=== PATIENT | female | born 1990 | race Asian ===

== ENCOUNTER 2023-09-14 23:38 | Emergency (ER) | payer OTHER, SELFPAY ==
[2023-09-14 23:43] VITALS: BP 180/89; PULSE 95; RESP 16; TEMP 36.8; O2SAT 97; BMI 30.1
--- NOTE | 2023-09-14 23:51 | ED_ITS ---
HPI - Back Pain/Injury General Chief Complaint: Back Pain/Injury Stated Complaint: did something to lower back Time Seen by Provider: 09/14/23 23:45 History of Present Illness HPI Narrative: Patient is a 33-year-old female with history of hypertension and kidney disease, presents today with back pain. She reports that [place] from the airport she lifted a heavy suitcase over a dog gate felt some popping in her low back. She did not fall. Sitting too long she would some tingling down both legs. He has no changes in bowel or bladder habits. It takes her a very long time to get up from a sitting position. She can not find a comfortable position. She has not taken anything at home for pain not sure what she can. She said she was supposed to get a renal ultrasound for her kidney disease but she never did. We have no records of her here or previous blood work. She reports that previously she had a bulging disc diagnosed by MRI in the [place]. Related Data Home Medications Medication Instructions Recorded Confirmed nifedipine 30 mg tablet,extended 30 mg PO DAILY 09/15/23 09/15/23 release Previous Rx's Medication Instructions Recorded cyclobenzaprine 5 mg tablet 5 mg PO TID PRN muscle spasm #10 09/15/23 tabs hydrocodone 5 mg-acetaminophen 325 1 tab PO Q6H PRN pain #10 tabs 09/15/23 mg tablet Allergies Allergy/AdvReac Type Severity Reaction Status Date / Time No Known Drug Allergies Allergy Verified 09/15/23 00:09 Exam Initial Vital Signs Initial Vital Signs: Vital Signs Temperature 98.3 F 09/14/23 23:43 Pulse Rate 95 H 09/14/23 23:43 Respiratory Rate 16 09/14/23 23:43 Blood Pressure 180/89 H 09/14/23 23:43 Pulse Oximetry 97 09/14/23 23:43 Oxygen Delivery Method Room Air 09/14/23 23:43 GENERAL: Well-appearing, well-nourished and in no acute distress. CARDIOVASCULAR: peripheral pulses in tact, cap refill <2 sec RESPIRATORY: No respiratory distress, speaks in full sentences without difficulty EXTREMITIES: Normal range of motion, no clubbing or edema. Neurovascularly intact BACK: Minimal midline tenderness at the lumbosacral junction no step-offs no lower lumbar pain mild paraspinal tenderness NEUROLOGICAL: Cranial nerves II through XII grossly intact. Normal gait and speech. Sensation in lower extremities intact no saddle anesthesia SKIN: Warm, dry, no petechiae, no rashes or lesions. Course Orders Ordered: Discontinued Medications Hydrocodone Bitart/Acetaminophen (Hydrocodone/Acet 5/325 Prepack) 1 bottle MISC DIRECTED ONE Stop: 09/15/23 00:03 Last Admin: 09/15/23 00:20 Dose: 1 bottle Ketorolac Tromethamine (Ketorolac 30 Mg/Ml Vial) 30 mg IM NOW ONE Stop: 09/15/23 00:03 Last Admin: 09/15/23 00:10 Dose: 30 mg Ondansetron HCl (Ondansetron 4 Mg Odt Prepack) 1 bottle MISC DIRECTED ONE Stop: 09/15/23 00:04 Last Admin: 09/15/23 00:11 Dose: 1 bottle Vital Signs Vital signs: Vital Signs - 8 hr 09/14/23 23:43 09/15/23 00:25 Temperature 98.3 F 97.6 F Pulse Rate 95 H 74 Respiratory Rate 16 18 Blood Pressure 180/89 H 154/78 H Pulse Oximetry 97 98 Oxygen Delivery Method Room Air Room Air MDM - Back Pain/Injury MDM Narrative Medical decision making narrative: Patient 33-year-old female with history of hypertension presents today with a m echanical back pain and spasm. She did not fall. No signs of cauda equina. She has not taken anything at home. She is given 1 dose of Toradol in the ED but long discussion do not recommend continuing to take ibuprofen or NSAIDs. He has given a prepack of Terlton and Zofran. Discussed light activity may require outpatient MRI and physical therapy Discharge Plan Departure Patient Disposition: Home Clinical Impression: Strain of lumbar region Instructions: DI for Back Strain or Sprain Activity Restrictions/Additional Instructions: *You have been diagnosed with back pain *What to do: At this time light activity is encouraged no strenuous activity or heavy lifting more than 10 pounds. May require outpatient MRI and or physical therapy *Continue to take medications as directed Do not take NSAIDs such as Motrin, naproxen, Aleve, ibuprofen, Advil etc Terlton 1 tablet every 6 hours if needed for severe pain (this has Tylenol in it, do not combine with Tylenol) Flexeril 1 tablet every 8 hours if needed for muscle spasm Tylenol 650 mg every 4-6 hours if needed for [id number] pain *Follow up with your primary care provider in 2-3 days or call [phone] *Return to ER if you should have increasing pain weakness in legs loss of urine or bowel or any new, worsening or concerning symptoms CONTROLLED SUBSTANCE DISCHARGE (Narcotoic/benzodiazepine/Flexeril/Phenergan) 1. You have been prescribed narcotic medications, it does have acetaminophen/Tylenol/paracetamol in it, DO NOT TAKE MORE THAN 4,00mg in 24 hours of Tylenol. TRAMADOL DOES NOT CONTAIN TYLENOL 2. Please understand that we cannot provide further refills of narcotics, benzodiazepines or controlled substances through the ED and her pain management will need to be through your provider. 3. While on these medications you cannot drive or operate heavy machinery. 4. You cannot sign legal documents or perform any duties such as this. 5. As long as you're taking opiate pain medications he should also be taking a stool softener such as Colace, Dulcolax, MiraLAX or prune juice, to help avoid constipation. Prescriptions: New hydrocodone-acetaminophen 5-325 mg tablet 1 tab PO Q6H PRN (Reason: pain) Qty: 10 0RF cyclobenzaprine 5 mg tablet 5 mg PO TID PRN (Reason: muscle spasm) Qty: 10 0RF No Action nifedipine 30 mg tablet extended release 30 mg PO DAILY Stand Alone Forms: Patient Portal/API
[2023-09-15] MEDS: KETOROLAC 30 MG/ML VIAL IM (00:10)
[2023-09-15] MEDS: ONDANSETRON 4 MG ODT PREPACK 1 BOTTLE MISC (00:11)
[2023-09-15] MEDS: HYDROCODONE/ACET 5/325 PREPACK 1 BOTTLE MISC (00:20)
[2023-09-15 00:25] VITALS: BP 154/78; PULSE 74; RESP 18; TEMP 36.4; O2SAT 98
== END 2023-09-15 00:26 | disposition home or self-care (01) ==
PROVIDERS: Emergency Provider Emergency Medicine
DX: S39.012A Strain of muscle, fascia and tendon of lower back, initial encounter (principal)
CPT/HCPCS: 96372; 99283; J1885